=== PATIENT | female | born 1955 | race Caucasian/White ===

== ENCOUNTER → 2023-11-08 15:06 | Outpatient (REF) | payer MEDICARE, OTHER, SELFPAY | LOC: WDC 15:06 | PROVIDERS: ATTENDING PHYSICIAN Family Medicine | DX: Z12.31 Encounter for screening mammogram for malignant neoplasm of breast (principal) | CPT/HCPCS: 77063; 77067 ==

== ENCOUNTER → 2023-12-04 12:17 | Outpatient (REF) | payer MEDICARE, OTHER, SELFPAY | LOC: RAD 12:17 | PROVIDERS: ATTENDING PHYSICIAN Nurse Practitioner Adult Health | DX: M79.672 Pain in left foot (principal) | CPT/HCPCS: 73610; 73630 ==

== ENCOUNTER → 2024-03-18 16:10 | Outpatient (REF) | payer MEDICARE, OTHER, SELFPAY | LOC: RAD 16:10 | PROVIDERS: ATTENDING PHYSICIAN Family Medicine | DX: M54.50 Low back pain, unspecified (principal) | CPT/HCPCS: 72110 ==

== ENCOUNTER 2024-04-17 08:58 | Emergency (ER) | payer MEDICARE, OTHER, SELFPAY ==
[2024-04-17 09:03] VITALS: BP 160/96
[2024-04-17 10:07] VITALS: BMI 33.0
[2024-04-17 10:10] VITALS: BP 148/91
[2024-04-17 10:29] LABS: % Basophils 0.9 % (0-2); % Immature Granulocytes 0.5 % (0-0.5); % Lymphocytes 19.9 % (20.5-51.1); % Monocytes 6.4 % (1.7-9.3); % Neutrophils 70.3 % (42.2-75.2); Absolute Basophils 0.1 10^3/uL (0-0.2); Absolute Eosinophils 0.1 10^3/uL (0-0.7); Absolute Lymphocytes 1.1 10^3/uL (1.2-3.4); Absolute Monocytes 0.4 10^3/uL (0.1-0.6); Absolute Neutrophils 3.8 10^3/uL (1.4-6.5); Hematocrit 40.6 % (37.0-47.0); Hemoglobin 13.9 g/dL (12.0-16.0); Mean Corp Hgb Conc. 34.2 g/dL (33.0-37.0); Mean Corpuscular Hgb 31.2 pg (27.0-31.0); Mean Platelet Volume 9.3 fL (7.4-10.4); Nucleated Red Blood Cells % 0 %; Platelet Count 263 10^3/uL (130-400); Red Blood Cell Count 4.46 10^6/uL (4.20-5.40); Red Cell Dist. Width 13.2 % (11.5-14.5); White Blood Cell Count 5.5 10^3/uL (4.8-10.8)
[2024-04-17 10:37] LABS: ALT (SGPT) 66 U/L (0-35); AST (SGOT) 58 U/L (14-36); Albumin 4.7 g/dl (3.5-5.0); Alkaline Phosphatase 172 U/L (38-126); Blood Urea Nitrogen 15 mg/dl (7-17); Calcium 9.9 mg/dl (8.4-10.2); Carbon Dioxide 27 mmol/L (22-30); Chloride 108 mmol/L (98-107); Estimated Creatinine Clearance 66 ml/min; Glucose 105 mg/dl (70-99); Potassium 4.1 mmol/L (3.5-5.1); Sodium 143 mmol/L (135-145); Total Bilirubin 0.6 mg/dl (0.2-1.3); Total Protein 7.3 g/dl (6.3-8.2); eGFR > 60.00
[2024-04-17 10:41] LABS: Troponin I < 0.012 ng/ml
--- NOTE | 2024-04-17 10:44 | ED.GENMED ---
History of Present Illness
General
Chief Complaint: Chest Pain
Source: patient
Time Seen by Provider: 04/17/24 10:19
History of Present Illness
History of Present Illness:
69yoF with a history of GERD, hyperlipidemia not on medication, and seasonal allergies presenting for evaluation of chest pain. She has been having intermittent chest pains x several months. She reports pain in her left upper chest that feels like a
muscle spasm. She initially noticed the pain while she was on the elliptical. She was seen by cardiology in August 2023 for her symptoms. She underwent a stress echo at that time which was reportedly normal. She was told that her pain was likely
muscular. She continues to have intermittent chest pains which typically improve with Advil. She swims and plays pickleball and does not notice any pain with these activities. She woke up this morning and her pain was slightly worse than usual so
she decided to come to the ED. She denies any associated diaphoresis, nausea, syncope, shortness of breath.
Past History
Past History
ED Past Medical History: GERD (Takes Prilosec)
ED Past Surgical History: Cholecystectomy () and Other (utereine fibroid embolizationb 2006)
Social History
Tobacco: Non-smoker
Personal:
Living: with family
Employment: Retired (director school of nursing)
Phy Exam
General Physical Exam
General Presentation: well appearing and no apparent distress
General age: appears stated age
General Skin: warm and dry
General Habitus: normal
General Mental: alert
Cardiovascular Exam
Cardiovascular Exam: regular rate/rhythm, no edema, no murmur and normal peripheral pulses (2+ DP pulses bilaterally)
Pulmonary Exam
Pulmonary Exam: lungs clear, no respiratory distress, no crackles and no wheezing
Skin Exam
Skin Exam: normal color and warm/dry
Psychiatric Exam
Psychiatric Exam: normal mood/affect
Scores
Heart Score for Chest Pain Patients
STEMI patient?: No
History: Slightly or Non-Suspicious
ECG: Nonspecific Repolarization
Age: >/= 65 years
Risk Factors: 1 or 2 Risk Factors
Troponin: </= Normal Limit
Heart Score for Chest Pain Patients: 4
Heart Score Risk: 20.3% MACE over next 6 weeks
Course
Orders/Labs/Results
Orders:
Orders
04/17/24 08:59
EKG [Electrocardiogram (*1)] Urgent
Reason for Study: Chest Pain
04/17/24 09:00
EKG- Treatment ONCE
04/17/24 09:51
CR Chest - 2 Views Urgent
Comment:
Reason For Exam: chest pain
04/17/24 10:12
Complete Blood Count/With Diff Urgent
Comprehensive Metabolic Panel Urgent
Troponin I Urgent
04/17/24 11:58
EKG- Treatment ONCE
04/17/24 13:10
Electrocardiogram (*1) Urgent
Reason for Study: Chest Pain
Troponin I Urgent
Abnormal Lab Results
04/17/24
10:12
MCH 31.2 H pg
(27.0-31.0)
Absolute Lymphs (auto) 1.1 L 10^3/uL
(1.2-3.4)
Lymphocytes % 19.9 L %
(20.5-51.1)
Chloride 108 H mmol/L
(98-107)
Glucose 105 H mg/dl
(70-99)
AST 58 H U/L
(14-36)
ALT 66 H U/L
(0-35)
Alkaline Phosphatase 172 H U/L
(38-126)
04/17/24 10:12
04/17/24 10:12
Vital Signs
Initial and Last Documented VS:
Initial Vital Signs
Temp Pulse Resp BP Pulse Ox
98.3 F 93 16 160/96 98
04/17/24 09:03 04/17/24 09:03 04/17/24 09:03 04/17/24 09:03 04/17/24 09:03
Last Documented Vital Signs
Temp Pulse Resp BP Pulse Ox
98.3 F 70 13 145/77 98
04/17/24 09:03 04/17/24 13:45 04/17/24 13:45 04/17/24 13:00 04/17/24 13:45
MDM/Problems Addressed
Differential Diagnosis Includes:
69yoF here with L sided chest pain. Intermittent x several months. Worse today. No associated SOB, diaphoresis, nausea. Has been seen by cardiology in August 2023 and had a normal stress echo. She is afebrile and hemodynamically stable. She is
well appearing in no distress. Exam is reassuring. Differential diagnosis includes but is not limited to: ACS, pneumonia, pleural effusion, musculoskeletal, nonspecific chest pain
Initial ED plan: Place on transportation broker, check cardiac labs, EKG, and CXR.
*EKG
Interpreted by ED Provider?: Yes
EKG Intrepretation Date: 04/17/24
Heart Rate: 79
Rate: normal
Rhythm: sinus
[place]: left axis deviation
QRS Pattern: left bundle branch block
Ischemia: no ischemia
*Critical Care Note
Total Time (30-74mins, 75-104mins- exclusive of procedures): Not Applicable
Update Note
Update Note:
Labs reveal a mild transaminitis of unclear significance. She has no complaints of abdominal pain. EKG shows NSR with a LBBB. Prior EKG from August 2023 did not show a LBBB although patient reports being told that she has had a LBBB during her
last stress test. These records are not available for review. Troponin is <0.012 and CXR is clear. Case was discussed with cardiology and she was evaluated at bedside by the cardiology team. Cardiology recommending discharge if repeat troponin/EKG
unchanged. Repeat troponin performed at 3 hours remains <0.012 and EKG is unchanged. She is stable for discharge. Advised close f/u with cardiology. ED return precautions discussed. She was discharged in stable condition.
ED Attending Note
-
Portions of this chart may have been created with voice recognition software.� Occasional wrong word or��sound alike� substitutions may have occurred due to the inherent limitations of voice recognition software.
Discharge Plan
Departure
Patient Disposition: Home (Routine Discharge)
Date of Disposition: 04/17/24
Time of Disposition: 14:00
Patient with high blood pressure during this ER visit?: Yes
Discharge Problem:
Chest pain
Instructions: Chest Pain DCA Follow Up
Prescriptions:
No Action
witch fortunato leaf (hamamelis) 1 EACH pad
1 pad TP PRN (Reason: as needed)
simethicone [Gas-X Extra Strength] 125 MG capsule
1 tab PO PRN (Reason: as needed)
acetaminophen [Tylenol Extra Strength] 500 MG tablet
1,000 mg PO PRN (Reason: pain)
omeprazole 20 MG capsule,delayed release(DR/EC)
20 mg PO DAILY
pseudoephedrine-ibuprofen 1 EACH capsule
2 ea PO DAILYPRN PRN (Reason: aches)
fexofenadine-pseudoephedrine [Enedina-D 24 Hour] 180-240 mg tablet extended release 24 hr
1 tab.sr PO DAILYPRN PRN (Reason: allergies)
calcium carbonate-vitamin D3 [Oyster Shell Calcium-Vit D3] 500 MG tablet
500 mg PO DAILY
acetaminophen-codeine [Tylenol-Codeine #3] 1 EACH tablet
1 ea PO PRN (Reason: as needed)
alum-mag hydroxide-simeth [Mag-Al Plus] 30 ML suspension
30 ml PO QIDPRN PRN (Reason: as needed)
prednisone 10 MG tablet
10 mg PO .TAPER Qty: 30 0RF
Rx Instructions:
Take 50mg daily for 2 days, 40mg daily for 2 days, 30mg daily for 2 days, 20mg daily for 2 days, 10mg daily for 2 days
hydrocodone-acetaminophen 1 TABLET tablet
1 tab PO Q4HPRN PRN (Reason: pain) Qty: 10 0RF
meclizine 25 mg tablet
25 mg PO TID PRN (Reason: dizziness) Qty: 14 0RF
Referrals:
Flex Reece MD [Active] - 05/20/24 11:20 am (You have a cardiology follow-up appointment at the [place] office. Please call with questions)
Lisa Collado MD [Family Provider] -
Activity Restrictions/Additional Instructions:
Please follow-up closely with your family doctor and home health scheduler. Return to the ER immediately with any new or worsening symptoms.
Interventions
Interventions:
*Risk Screen - Suicide Last Done: 04/17/24 09:03
*General Assessment Last Done: 04/17/24 09:03
*Neglect/Abuse Screening Last Done: 04/17/24 09:03
*ED COVID-19 Vaccine History Last Done: 04/17/24 10:08
*Nursing Disposition Last Done: 04/17/24 14:03
ED- Cardiac Assessment Last Done: 04/17/24 10:08
Discharge Date and Time
Discharge Date/Time: 04/17/24 14:05
Print Language: JAPANESE
[2024-04-17 11:00] VITALS: BP 135/79
[2024-04-17 12:00] VITALS: BP 145/79
--- NOTE | 2024-04-17 12:36 | CON.CAR ---
Addendum entered and electronically signed by Donal Le MD 04/17/24 13:02:
I saw and examined the patient.
The Line Construction Engineer's note was reviewed and I agree with the note.
Comment:
GEN: No distress, awake, Ox3
HEENT: supple, anicteric, mmm
LUNGS: CTA, no wheezes/rales
CV: Reg, S1/S2, 1/6 syst LSB, no gallop
ABD: soft, BS+, NT/ND
EXT: No edema
NEURO: Gross non-focal
SKIN: No rash
plan:
She has a past medical history of emphysema, hyperlipidemia, abnormal LFTs, and left bundle branch block. She presents to the emergency room with chest discomfort for the past several weeks. It seems worse with twisting or pulling and is worse if
she pushes on this. She swims and plays pickle ball with no chest discomfort. She denies any nausea, vomiting, sweats, or shortness of breath.
EKG is left bundle branch block and first troponin is negative.
Recent stress echo September 2023 with no clear ischemia. During stress echo she had a left bundle branch block.
Check repeat troponin. If repeat troponin is negative okay for discharge. Her chest pain is very atypical.
If pain recurs or becomes more exertional related could consider repeat stress testing with Lexiscan nuclear scan.
Will arrange outpatient follow-up if troponin is negative.
Of note, LFTs are abnormal.
Original Note:
Consultation
Consultation Request
Date/Time Consultation Performed: 04/17/24
Requesting Provider: Ivelisse Fairbanks PA-C
Performing Provider: Vianney Allison PA-C for Dr. Le
Reason for Consultation: CP
Medical History
-
Chief Complaint: CP
History of Present Illness:
Patient is a 69-year-old female who was seen as a new patient in our office 08/2023 for tachycardia noted during pulmonary office visit. EKG in our office was normal sinus rhythm. She underwent echo which was unremarkable. She was ordered stress
echo which was completed in September 2023. She completed 7 METS of activity with imaging unrevealing for clear ischemia, with good image quality and preserved EF. She was noted to have a left bundle branch block at that time. She presents to [facility] emergency room today due to chest discomfort. She reports she has noticed it over the last several months, however over the last several weeks it has become more frequent. Today she states it was worse than previous. She
reports it is mostly left-sided, no radiation of pain. She denies abdominal pain, diaphoresis, lightheadedness, nausea/vomiting, shortness of breath. She reports she is active swimming 45 minutes a day and playing pickle ball and does not notice
the pain with these activities. She does state it appears to be worse with movements. Initial troponin negative. EKG stable in sinus rhythm with left bundle branch block. Cardiology consulted for evaluation
PMH:
History of tachycardia
Chronic LBBB
Borderline hyperlipidemia
GERD
Remote history of PE
Emphysema on CT scan
Past Medical History
Past Medical History: Other (in HPI)
Social History
Tobacco: Non-Smoker
Alcohol: Occasional
Personal:
Living: With Family
Employment: Retired
Family History
Family History: Cancer and Hypertension
Allergies / Home Medications
Allergy/AdvReac Type Severity Reaction Status Date / Time
azithromycin Allergy severe Verified 04/17/24 09:02
headache,joint
aches/limbs
hurt
bee stings Allergy Swelling Uncoded 04/17/24 09:02
MELONS Allergy SNEEZING,SCRATCHY Uncoded 04/17/24 09:02
THROAT,ITCHY
EARS,WATERY
EYES
RAGWEED Allergy SNEEZING,SCRATCHY Uncoded 04/17/24 09:02
THROAT,ITCHY
EARS,WATERY
EYES
�Medication �Instructions �Recorded �Confirmed �Type
acetaminophen 500 mg tablet 1,000 mg PO PRN pain 08/10/09 09/30/11 History
(Tylenol Extra Strength)
calcium carbonate 500 mg-vitamin 500 mg PO DAILY 08/10/09 09/30/11 History
D3 5 mcg (200 unit) tablet (Oyster
Shell Calcium-Vitamin D3)
fexofenadine-pseudoephedrine ER 1 tab.sr PO DAILYPRN PRN allergies 08/10/09 09/30/11 History
180 mg-240 mg tablet,ext.release
24 hr (Enedina-D 24 Hour)
omeprazole 20 mg capsule,delayed 20 mg PO DAILY 08/10/09 09/30/11 History
release
pseudoephedrine-ibuprofen 30 2 ea PO DAILYPRN PRN aches 08/10/09 09/30/11 History
mg-200 mg capsule
simethicone 125 mg capsule (Gas-X 1 tab PO PRN as needed 08/10/09 09/30/11 History
Extra Strength)
witch fortunato leaf (hamamelis) 1 pad TP PRN as needed 08/10/09 09/30/11 History
acetaminophen 300 mg-codeine 30 mg 1 ea PO PRN as needed 09/30/11 09/30/11 History
tablet (Tylenol-Codeine #3)
aluminum-mag hydroxide-simethicone 30 ml PO QIDPRN PRN as needed 09/30/11 09/30/11 History
200 mg-200 mg-20 mg/5 mL oral susp
(Mag-Al Plus)
hydrocodone 5 mg-acetaminophen 325 1 tab PO Q4HPRN PRN pain #10 tabs 01/22/16 Rx
mg tablet
prednisone 10 mg tablet 10 mg PO .TAPER #30 tabs 01/22/16 Rx
meclizine 25 mg tablet 25 mg PO TID PRN dizziness #14 tabs 04/20/22 Rx
Review of Systems
-
History Source: Patient
All other systems: Negative unless noted
Physical Exam
Vital Signs
Temp Pulse Resp BP Pulse Ox
98.3 F 69 12 135/79 95
04/17/24 09:03 04/17/24 11:15 04/17/24 11:15 04/17/24 11:00 04/17/24 11:15
Lab Results
04/17/24 10:12
04/17/24 10:12
Troponin I < 0.012 ng/ml 04/17/24 10:12
Physical Exam
General: No Apparent Distress and Comfortable
HEENT: Normocephalic, Anicteric and Moist Mucous Membranes
Respiratory: Clear and Non Labored Respirations
Cardiac: S1/S2 and Regular Rhythm
GI: Soft, Non Tender, Non Distended and Normal Bowel Sounds
Musculoskeletal: No Clubbing, No Cyanosis and No Edema
Skin: Warm and Dry
Neuro: AO x 3
Impression / Plan
-
Primary Beauty Sales Advisor: Dr. Reece
Assessment:
Presentation with CP
Negative troponin x1
History of tachycardia
Chronic LBBB
Borderline hyperlipidemia
GERD
Remote history of PE
Emphysema on CT scan
Elevated LFTs
ECHO 08/2023: EF 55 to 60%, mild concentric LVH, trace MR, trace TR, PAP 33 mmHg, prominent anterior fat pad present with no pericardial effusion
Stress echo 09/2023: Negative for evidence of ischemia at 7 METS of activity, stress echo images were of good quality, LV became hyperdynamic with exercise without RWMA
Plan:
-Patient presents with chest pain which appears atypical for cardiac etiology
-EKG sinus rhythm with chronic left bundle branch block
-Chest x-ray without acute abnormalities
-Troponin negative x 1
-Recent echo and stress test reviewed as above
-She has history of remote PE, appears was provoked by chart. She is without lower extremity swelling, shortness of breath, tachycardia, or fever, so low suspicion
-Check second troponin. If negative, will arrange for outpatient cardiac follow-up to reassess
-If pain persists, could consider for nuclear stress test versus cardiac catheterization as OP
-d/w JYOTSNA POWERS
Data Reviewed
-
EKG: Tracing Personally Visualized and interpreted
Radiology: Report Reviewed by me
Medical Tests (Nuc Med, Echo etc): Report Reviewed by me
Labs: Labs Reviewed by me
Old Records: Reviewed
[2024-04-17 13:00] VITALS: BP 145/77
[2024-04-17 13:52] LABS: Troponin I < 0.012 ng/ml
== END 2024-04-17 14:05 | disposition home or self-care (01) ==
LOC: EMR 08:58
PROVIDERS: Physician Assistant; EMERGENCY PHYSICIAN Emergency Medicine; FAMILY PHYSICIAN Family Medicine
DX: R07.89 Other chest pain (principal); K21.9 Gastro-esophageal reflux disease without esophagitis; E78.00 Pure hypercholesterolemia, unspecified; J43.9 Emphysema, unspecified; Z82.49 Family history of ischemic heart disease and other diseases of the circulatory system; Z86.711 Personal history of pulmonary embolism; Z90.49 Acquired absence of other specified parts of digestive tract
CPT/HCPCS: 99283; 71046; 80053; 84484; 85025; 93005

== ENCOUNTER → 2024-06-11 08:26 | Outpatient (REF) | payer MEDICARE, OTHER, SELFPAY | LOC: RAD 08:26 | PROVIDERS: ATTENDING PHYSICIAN Family Medicine; REFERRING PHYSICIAN Obstetrics & Gynecology Gynecology | DX: R07.89 Other chest pain (principal); Z78.0 Asymptomatic menopausal state; R74.8 Abnormal levels of other serum enzymes; R10.11 Right upper quadrant pain | CPT/HCPCS: 76700; 77080 ==

== ENCOUNTER → 2024-11-05 15:09 | Outpatient (REF) | payer MEDICARE, OTHER, SELFPAY | LOC: WDC 15:09 | PROVIDERS: ATTENDING PHYSICIAN Obstetrics & Gynecology Gynecology; FAMILY PHYSICIAN Family Medicine | DX: Z12.31 Encounter for screening mammogram for malignant neoplasm of breast (principal) | CPT/HCPCS: 77063; 77067 ==

== ENCOUNTER → 2025-04-30 11:46 | Outpatient (REF) | payer MEDICARE, OTHER, SELFPAY | LOC: RAD 11:46 | PROVIDERS: ATTENDING PHYSICIAN Family Medicine | DX: M54.6 Pain in thoracic spine (principal); R14.0 Abdominal distension (gaseous); G89.29 Other chronic pain | CPT/HCPCS: 72072 ==

== ENCOUNTER → 2025-07-08 09:03 | Outpatient (REF) | payer MEDICARE, OTHER, SELFPAY | LOC: RAD 09:03 | PROVIDERS: ATTENDING PHYSICIAN Family Medicine | DX: M25.551 Pain in right hip (principal) | CPT/HCPCS: 73502 ==